=== PATIENT | female | born 1955 | race Caucasian/White ===

== ENCOUNTER → 2021-04-10 08:01 | Outpatient (BNVA) | payer MEDICARE, SELFPAY | PROVIDERS: PCP Nurse Practitioner Family; Visit Provider Nurse Practitioner Psychiatric/Mental Health | DX: F31.9 Bipolar disorder, unspecified (principal); F43.12 Post-traumatic stress disorder, chronic; Z03.89 Encounter for observation for other suspected diseases and conditions ruled out | CPT/HCPCS: 99215 ==

== ENCOUNTER → 2021-04-11 09:51 | Outpatient (BNVA) | payer MEDICARE, SELFPAY | PROVIDERS: PCP Nurse Practitioner Family; Visit Provider Nurse Practitioner Psychiatric/Mental Health | DX: Z03.89 Encounter for observation for other suspected diseases and conditions ruled out (principal) | CPT/HCPCS: 80053; 80061; 83036; 84439; 84443; 84481 ==

== ENCOUNTER → 2021-04-24 11:16 | Outpatient (BNVA) | payer MEDICARE, SELFPAY | PROVIDERS: PCP Nurse Practitioner Family; Visit Provider Nurse Practitioner Psychiatric/Mental Health | DX: F43.12 Post-traumatic stress disorder, chronic (principal); F32.9 Major depressive disorder, single episode, unspecified | CPT/HCPCS: 99213 ==

== ENCOUNTER → 2021-08-14 14:24 | Outpatient (BNVA) | payer MEDICARE, SELFPAY | PROVIDERS: PCP Nurse Practitioner Family; Visit Provider Nurse Practitioner Psychiatric/Mental Health | DX: F43.12 Post-traumatic stress disorder, chronic (principal); F32.9 Major depressive disorder, single episode, unspecified | CPT/HCPCS: 99213 ==

== ENCOUNTER → 2022-02-24 12:19 | Outpatient (BNVA) | payer MEDICARE, SELFPAY | PROVIDERS: PCP Nurse Practitioner Family; Visit Provider Nurse Practitioner Family | DX: R35.0 Frequency of micturition (principal); B37.3 Candidiasis of vulva and vagina | CPT/HCPCS: 81000 ==

== ENCOUNTER → 2023-02-15 09:22 | Outpatient (BNVA) | payer MEDICARE, SELFPAY | PROVIDERS: PCP Family Medicine | DX: R06.00 Dyspnea, unspecified (principal); R06.02 Shortness of breath; Z98.890 Other specified postprocedural states | CPT/HCPCS: 71046 ==

== ENCOUNTER 2023-04-19 09:42 | Outpatient (CLI) | payer MEDICARE, SELFPAY ==
[2023-04-19 10:32] LABS: Estmated Average Glucose 117; Hemoglobin A1C 5.7 % (4.0-6.0)
[2023-04-19 10:37] LABS: Alanine Aminotransferase 32 U/L (0-33); Albumin Level 4.1 g/dL (3.5-5.2); Alkaline Phosphatase 114 U/L (35-105); Aspartate Amino Transferase 27 U/L (0-32); Blood Urea Nitrogen 12 mg/dL (8-23); Calcium 8.8 mg/dL (8.5-10.5); Carbon Dioxide 24 mmol/L (22-29); Chloride 105 mmol/L (98-107); Chol HDL Ratio 8.04 mg/dL (0.0-4.40); Cholesterol 217 mg/dL (0-200); Globulin 2.3 g/dL (1.3-4.6); Glomerular Filtration Rate 62.3 mL/min (90-130); Glucose 96 mg/dL (65-115); HDL Cholesterol 27 mg/dL (60-100); LDL Cholesterol Calculated 128 mg/dL (50-129); LDL HDL Ratio 4.74 RATIO (0.00-3.22); Osmolality Calculated 290 mOsm/kg (285-295); Sodium 140 mmol/L (136-145); Total Bilirubin 0.6 mg/dL (0.15-1.2); Total Protein 6.4 g/dL (6.6-8.7); Triglycerides 310 mg/dL (0-150)
== END 2023-04-19 09:43 | disposition home or self-care (01) ==
PROVIDERS: PCP Family Medicine; Visit Provider Nurse Practitioner Psychiatric/Mental Health
DX: Z79.899 Other long term (current) drug therapy (principal)
CPT/HCPCS: 36415; 80053; 80061; 83036; 87070; 87205

== ENCOUNTER 2023-04-29 12:53 | Outpatient (CLI) | payer MEDICARE, SELFPAY ==
--- NOTE | 2023-04-29 13:15 | CT_ITS ---
WS: [id number] LDCT LUNG CANCER SCREENING HISTORY: screening TECHNIQUE: Axial imaging performed from the apices to 1 cm below the costophrenic angles. Coronal and sagittal reformats are submitted with axial MIP series. All CT scans at [facility] use at least one of these dose optimization techniques: automated exposure control; mA and/or kV adjustment per patient size (includes targeted exams where dose is matched to clinical indication); or iterativ e reconstruction. DLP: 64.50 mGy.cm DIvol: Mean CTDIvol: 1.30 (mGy) COMPARISON: None available. Diagnostic quality: Satisfactory Lungs: Well aerated lungs. There are numerous scattered micronodules throughout the lungs. Majority o f these are calcified from granulomatous disease. No mass or larger nodule than 3 mm. No endobronchia l lesions. No pneumonia. Heart: Normal size heart with no pericardial effusion.. Mild coronary artery calcified plaque. Other findings: Mild atherosclerosis aorta. No significant mediastinal or hilar adenopathy. CT/CT lung screening [id number] IMPRESSION: LUNG-RADS: 1-Negative FOLLOW UP: 12 Month: Continue annual screening with LDCT OTHER FINDINGS (S MODIFIER): None.
--- NOTE | 2023-04-29 13:24 | MM_ITS ---
WS: [id number] BILATERAL SCREENING DIGITAL TOMOSYNTHESIS MAMMOGRAM WITH CAD HISTORY: screening mammogram COMPARISON: None available. Bilateral CC and MLO views with tomosynthesis and synthetic mammography submitted. Computer aided det ection analyzed. Breast composition: There are scattered areas of fibroglandular density. No suspicious masses, microc alcifications or architectural distortion. Benign 8 mm intramammary lymph node RIGHT axillary tail. B enign calcifications LEFT breast. MM/[place] [id number] IMPRESSION: BI-RADS: 2-Benign FOLLOW UP: 1 Year Follow-up
== END 2023-04-29 12:54 | disposition home or self-care (01) ==
LOC: RAD 12:57 → MOBLMAM 13:23
PROVIDERS: PCP Family Medicine; Visit Provider Family Medicine
DX: Z12.31 Encounter for screening mammogram for malignant neoplasm of breast (principal); Z12.2 Encounter for screening for malignant neoplasm of respiratory organs; F17.219 Nicotine dependence, cigarettes, with unspecified nicotine-induced disorders
CPT/HCPCS: 71271; 77063; 77067

== ENCOUNTER → 2023-05-04 09:44 | Outpatient (BNVA) | payer MEDICARE, SELFPAY | PROVIDERS: PCP Family Medicine; Visit Provider Surgery | DX: Z86.010 Personal history of colon polyps (principal) | CPT/HCPCS: 99203 ==

== ENCOUNTER 2023-05-27 06:27 | Day surgery (SDC) | payer MEDICARE, SELFPAY ==
[2023-05-27 06:53] VITALS: BP 165/65; PULSE 62; RESP 18; TEMP 36.2; O2SAT 95
--- NOTE | 2023-05-27 07:00 | P.HPUD_ITS ---
Surgery/Procedure H&P Update DATE OF PROCEDURE: May 27, 2023 DATE H&P PERFORMED: 05/04/23 H&P UPDATE INFORMATION: I have reviewed H&P completed within last 30 days, I have examined patient prior to procedure, No changes to prior documentation and H&P is in [facility] EMR on date indicated PLANNED PROCEDURE: Operation Date: 05/27/23 07:50 Proposed Procedures p Colonoscopy 87492,Z86.010(Not Applicable) - Joaquín Rivers MD
[2023-05-27] MEDS: sodium chloride 0.9% 1,000 ML 30 ML IV (07:11)
--- NOTE | 2023-05-27 07:32 | ANES.PREANE2 ---
Pre-Anesthetic Assessment Height/Weight: Height 1.68 m Weight 77.564 kg Temp Pulse Resp BP Pulse Ox O2 Del Method 97.1 F L 62 18 165/65 95 Room Air 05/27/23 06:53 05/27/23 06:53 05/27/23 06:53 05/27/23 06:53 05/27/23 06:53 05/27/23 06:53 Operation Date: 05/27/23 07:50 Proposed Procedures p Colonoscopy [id number],Z86.010(Not Applicable) - Joaquín Rivers MD Familial anesthetic complications: none Was Beta Kavon taken within 24 hours: N/A Was Clonidine taken within 24 hours: N/A Last intake: Intake Last Liquid Date 05/26/23 Last Liquid Time 22:00 Last Solid Date 05/25/23 Last Solid Time 19:00 Social No alcohol and No tobacco Exam alert and oriented x 3 Airway Submandibular: within normal limits Cervical ROM: within normal limits Mallampati: Class II Dentition: false History/ROS No significant history except as noted Pulmonary Chronic Obstructive Pulmonary Disease emphysema None reported Hepatic None reported GI Gastroesophageal Reflux Disease Metabolic None reported Musc/skel None reported Neuropsych Bipolar Anesthetic Plan ASA status: 3 Anesthesia: Anesthesia Evaluation, General and MAC Medications/Allergies Home Medications Medication Instructions Recorded Confirmed Last Taken Type citalopram 20 mg tablet 20 mg PO .q am #30 tabs 04/27/23 05/25/23 05/26/23 Rx quetiapine 50 mg tablet (Seroquel) 50 mg PO .q hs #30 tabs 04/27/23 05/25/23 05/26/23 Rx celecoxib 100 mg capsule (Celebrex) 100 mg PO BID #60 caps 05/17/23 05/25/23 05/26/23 Rx conjugated estrogens 0.625 mg/gram 0.625 mg vaginal .COMPLEX #30 grams 05/17/23 05/25/23 05/26/23 Rx vaginal cream (Premarin) omeprazole 40 mg capsule,delayed 40 mg PO DAILY #90 caps 05/17/23 05/25/23 05/26/23 Rx release tizanidine 4 mg tablet 4 mg PO .at dinnertime PRN muscle 05/17/23 05/25/23 05/26/23 Rx spasticity #30 tabs Allergies Allergy/AdvReac Type Severity Reaction Status Date / Time morphine Allergy ALGY-Bliste Verified 05/17/23 12:58 r Current Medications Generic Name Dose Route Start Last Admin Trade Name Freq PRN Reason Stop Dose Admin Sodium Chloride 1,000 mls @ 30 mls/hr 05/27/23 06:45 05/27/23 07:11 Sodium Chloride 0.9% IV 30 mls/hr .Q24H CHAD Administration PFSH Anesthesia Medical History (Updated 05/17/23 @ 13:08 by Dianelys Jin DO) Major depressive disorder, recurrent, moderate Psychiatric care Surgical History (Updated 05/17/23 @ 13:05 by Dianelys Jin DO) History of esophagogastroduodenoscopy (EGD) more than 10 years ago History of hysterectomy Due to abnormal pap Hx of colonoscopy More than 10 years ago Social History Smoking and tobacco status: current every day smoker cigarettes Packs smoked per day: 0.5 Years cigarettes smoked: 58 Quit status (tobacco): not considering quitting Second hand smoke exposure: No Data Anesthesia Cardiac Studies: No Data to Display
[2023-05-27 08:29] VITALS: BP 110/68; PULSE 56; RESP 16; TEMP 36.3; O2SAT 94
[2023-05-27 08:39] VITALS: BP 138/78; PULSE 54; RESP 16; O2SAT 94
--- NOTE | 2023-05-27 16:09 | ANE.PACU2 ---
Inpatient post-anesthesia follow up: Airway intact: Yes Vital signs: Temperature 97.3 F Pulse Rate 54 Respiratory Rate 16 Blood Pressure 138/78 Pulse Oximetry 94 Oxygen Delivery Me thod Room Air Oxygen Flow Rate Fraction of Inspir ed Oxygen Hydration adequate: Yes Nausea and vomiting: No Pain level: 2 Mental status: Baseline
== END 2023-05-27 09:05 | disposition home or self-care (01) ==
PROVIDERS: PCP Family Medicine; Visit Provider Surgery
PROC: 0DJD8ZZ Inspection of Lower Intestinal Tract, Via Natural or Artificial Opening Endoscopic (ICD-10-PCS; CPT 45330; principal; 2023-05-27 07:50)
DX: Z86.010 Personal history of colon polyps (principal); J44.9 Chronic obstructive pulmonary disease, unspecified; K21.9 Gastro-esophageal reflux disease without esophagitis; F17.210 Nicotine dependence, cigarettes, uncomplicated
CPT/HCPCS: 45330; J2704; J7030

== ENCOUNTER → 2023-05-28 15:33 | Outpatient (BNVA) | payer MEDICARE, SELFPAY | PROVIDERS: PCP Family Medicine; Visit Provider Surgery | DX: Z09 Encounter for follow-up examination after completed treatment for conditions other than malignant neoplasm (principal) | CPT/HCPCS: 99212 ==

== ENCOUNTER → 2024-02-15 09:51 | Outpatient (BNVA) | payer MEDICARE, SELFPAY | PROVIDERS: PCP Family Medicine; Visit Provider Anesthesiology Pain Medicine | DX: M51.16 Intervertebral disc disorders with radiculopathy, lumbar region (principal); G89.29 Other chronic pain | CPT/HCPCS: 72110; 99204 ==

== ENCOUNTER → 2024-02-29 13:50 | Outpatient (BNVA) | payer MEDICARE, SELFPAY | PROVIDERS: PCP Family Medicine; Visit Provider Anesthesiology Pain Medicine | DX: M54.16 Radiculopathy, lumbar region (principal); M54.42 Lumbago with sciatica, left side; M54.41 Lumbago with sciatica, right side; G89.29 Other chronic pain | CPT/HCPCS: 64483; 64484; J1100; J3490 ==

== ENCOUNTER 2024-03-13 14:35 | Outpatient (CLI) | payer MEDICARE, SELFPAY ==
--- NOTE | 2024-03-13 15:15 | MR_ITS ---
WS: [id number] MRI LUMBAR SPINE NONCONTRAST HISTORY: M54.16 - Radiculopathy, lumbar region COMPARISON: 08/07/2016 TECHNIQUE: Sagittal and axial multisequence imaging is submitted. Central cervical stenosis from C4-C6 7 due to disc and osteophyte disease. Mild curvature lumbar spine. Disc spaces are narrowed and desiccated. Most significant desiccation at L4-5. Reactive marrow edema along the endplates of L4-5. Conus terminates normally at L1-2 disc level. T12-L1: Annular disc bulging with a shallow RIGHT paracentral disc protrusion. Mild bilateral foramin al stenosis. L1-L2: Diffuse annular disc bulging with osteophytic ridging. LEFT paracentral disc protrusion contac ting and deforming the LEFT lateral thecal sac. Mild bilateral subarticular recess encroachment, LEFT greater than RIGHT. Mild LEFT foraminal stenosis. L2-L3: Mild annular disc bulging. No stenosis. L3-L4: Mild annular disc bulging with facet and ligamentum flavum hypertrophy. Disc encroachment upon the subarticular recesses and mild subarticular recess stenosis. L4-L5: Diffuse annular disc bulging with osteophytic ridging, ligamentum flavum and facet disease. Mo derate central disc protrusion. Combination of findings resulting in moderate to severe central with bilateral subarticular recess and mild foraminal stenosis. There is significant contact on the bree sing L5 nerve roots. L5-S1: Mild disc bulging. Small LEFT foraminal osteophytes. Suspect there is a cyst associated with the upper pole RIGHT kidney. Atherosclerosis aorta. MR/MR lumbar spine wo con* [id number] IMPRESSION: 1. Progression of degenerative disc disease and facet disease since 2016. 2. Most significant disc progression is at L4-5. 3. L4-5: Moderate to severe central with bilateral subarticular recess and mil d foraminal stenosis. Significant contact on the traversing L5 nerve roots. The re is a moderate size central disc protrusion contributing to the encroachment. Disc protrusion and stenosis have progressed since 2016. 4. L3-4: Disc encroachment upon the subarticular recesses. Mild subarticular r ecess stenosis. 5. L1-2: Small LEFT paracentral disc protrusion. Contacts the LEFT lateral the adelia sac. Mild bilateral subarticular recess encroachment, LEFT greater than RIG HT and mild LEFT foraminal stenosis. 6. T12-L1: Mild foraminal stenosis.
== END 2024-03-13 14:36 | disposition home or self-care (01) ==
LOC: RAD 14:37
PROVIDERS: PCP Family Medicine; Visit Provider Anesthesiology Pain Medicine
DX: M54.16 Radiculopathy, lumbar region (principal); M48.061 Spinal stenosis, lumbar region without neurogenic claudication; M51.26 Other intervertebral disc displacement, lumbar region; M48.04 Spinal stenosis, thoracic region
CPT/HCPCS: 72148

== ENCOUNTER → 2024-03-14 10:22 | Outpatient (BNVA) | payer MEDICARE, SELFPAY | PROVIDERS: PCP Family Medicine; Visit Provider Anesthesiology Pain Medicine | DX: G89.29 Other chronic pain; M51.16 Intervertebral disc disorders with radiculopathy, lumbar region | CPT/HCPCS: 99214 ==

== ENCOUNTER 2025-02-22 08:40 | Outpatient (CLI) | payer OTHER, SELFPAY ==
--- NOTE | 2025-02-22 08:45 | CT_ITS ---
WS: [id number] LDCT LUNG CANCER SCREENING TECHNIQUE: Noncontrast CT of the chest with coronal and sagittal reformatted images. CLINICAL INFORMATION: NICOTINE DEPENDENCE,CIGARETTES COMPARISON: 2022 DLP: 69.51 mGy.cm DIvol: Mean CTDIvol: 1.50 (mGy) All CT scans at [facility] use at least one of these dose optimization techniques: automated exposure control; mA and/or kV adjustment per patient size (includes targeted exams where dose is matched to clinical indication); or iterative reconstruction. FINDINGS: Scattered tiny calcified granulomas. A few small perifissural nodules. Few tiny micronodules in the upper lobes. Aortic calcification. Coronary calcification. No mediastinal or hilar lymphadenopathy. No axillary lymphadenopathy. Tiny LEFT adrenal adenoma. Normal RIGHT adrenal gland. Normal GE junction. Thoracic kyphosis. CT/CT lung screening [id number] IMPRESSION: LUNG-RADS: 2-Benign Appearance or Behavior FOLLOW UP: 12 Month: Continue annual screening with LDCT
== END 2025-02-22 08:41 | disposition home or self-care (01) ==
LOC: RAD 08:43
PROVIDERS: PCP Physician Assistant; Visit Provider Physician Assistant
DX: Z12.2 Encounter for screening for malignant neoplasm of respiratory organs (principal); F17.210 Nicotine dependence, cigarettes, uncomplicated; R91.8 Other nonspecific abnormal finding of lung field; I70.0 Atherosclerosis of aorta; I25.10 Atherosclerotic heart disease of native coronary artery without angina pectoris; M40.294 Other kyphosis, thoracic region
CPT/HCPCS: 71271

== ENCOUNTER 2025-08-12 16:06 | Emergency (ER) | payer MEDICARE, SELFPAY ==
--- NOTE | 2025-08-12 16:10 | XRR_ITS ---
PROCEDURE INFORMATION: Exam: XR Chest Exam date and time: 08/12/2025 4:45 PM Age: 70 years old Clinical indication: Cough TECHNIQUE: Imaging protocol: Radiologic exam of the chest. Views: 1 view. COMPARISON: CT lung screening [id number] 02/22/2025 9:02 AM FINDINGS: Lungs: Bibasilar atelectasis. Emphysematous changes. Pleural spaces: Unremarkable. No pleural effusion. No pneumothorax. Heart/Mediastinum: Cardiomegaly. Bones/joints: Unremarkable. XR/XR chest 1V portable [id number] IMPRESSION: 1. Cardiomegaly. 2. Bibasilar atelectasis. 3. Emphysematous changes.
--- NOTE | 2025-08-12 16:11 | W.ED.UPPEXIN ---
HPI - Extremity Injury (Upper) General: Stated Complaint: cough / rt side pain Time Seen by Provider: 08/12/25 16:10 Related Data Home Medications ?Medication ?Instructions ?Recorded ?Confirmed Saccharomyces boulardii 250 mg 250 mg PO BID 12/16/23 05/16/24 capsule (Digest Probiotic (S.boulardii)) garlic 300 mg capsule 300 mg PO DAILY 12/16/23 05/16/24 Previous Rx's ?Medication ?Instructions ?Recorded citalopram 20 mg tablet 20 mg PO .q am #30 tabs 08/19/23 hydroxyzine pamoate 25 mg capsule 25 mg PO .q hs PRN anxiety #30 caps 08/19/23 quetiapine 100 mg tablet 100 mg PO .q hs #30 tabs 08/19/23 omeprazole 40 mg capsule,delayed 40 mg PO DAILY #90 caps 12/16/23 release tizanidine 4 mg tablet 4 mg PO TID PRN muscle spasticity 12/16/23 #270 tabs moxifloxacin 400 mg tablet 400 mg PO DAILY 7 days #7 tabs 05/16/24 Allergies Allergy/AdvReac Type Severity Reaction Status Date / Time amoxicillin (From Augmentin) Allergy Intermediate ADR-Nausea Verified 05/16/24 15:17 clavulanic acid (From Allergy Intermediate ADR-Nausea Verified 05/16/24 15:17 Augmentin) morphine Allergy ALGY-Bliste Verified 05/16/24 15:10 r z pack Allergy Intermediate ADR-Nausea Uncoded 05/16/24 15:18 celebrex Allergy Mild leg pain Uncoded 05/16/24 15:10 [facility] ED PFS: Medical History (Updated 08/21/24 @ 09:05 by Alejandra Elaine LPN) Major depressive disorder, recurrent, moderate Surgical History Hx of colonoscopy More than 10 years ago History of esophagogastroduodenoscopy (EGD) more than 10 years ago History of hysterectomy Due to abnormal pap Social History Smoking and tobacco/nicotine status: unknown if used tobacco/nicotine Quit status (tobacco/nicotine): not considering quitting Second hand smoke exposure: No Discharge Plan Discharge Condition: Stable Prescriptions: No Action garlic 300 mg capsule 300 mg PO DAILY Saccharomyces boulardii [Digest Probiotic (S.boulardii)] 250 mg capsule 250 mg PO BID tizanidine 4 mg tablet 4 mg PO TID PRN (Reason: muscle spasticity) Qty: 270 1RF omeprazole 40 mg capsule,delayed release(DR/EC) 40 mg PO DAILY Qty: 90 1RF moxifloxacin 400 mg tablet 400 mg PO DAILY 7 Days Qty: 7 0RF hydroxyzine pamoate 25 mg capsule 25 mg PO .q hs PRN (Reason: anxiety) Qty: 30 2RF Rx Instructions: Take one capsule by mouth at bedtime, if needed for anxiety quetiapine 100 mg tablet 100 mg PO .q hs Qty: 30 2RF Rx Instructions: Take one tablet daily at bedtime citalopram 20 mg tablet 20 mg PO .q am Qty: 30 2RF Rx Instructions: Take one tablet every morning with food Referrals: Qi Winters PA [Primary Care Provider, [facility]] Print Language: Arabic Coding Level of Care Code ED Clutch Rebuilder for Jaimee Brown
--- OUTSIDE RECORDS SUMMARY | 2025-08-12 16:12 | XMS_ITS | Continuity of Care Document ---
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 Plan of Treatment Reminders Order Date Submit Date Provider Last Modified By Organization Details Last Modified Time Details Appointments None recorded. Lab None recorded. Referral None recorded. Procedures None recorded. Surgeries None recorded. Imaging None recorded. Medication Orders prednisone 20 mg tablet 2024 [id number], [address], [place], [place], [phone], 12:43:52 doxycycline hyclate 100 mg capsule 2024 [facility] #43079, [address], [place], [place], [phone], 12:43:53 triamcinolo ne acetonide 0.1 % topical cream 2024 [facility] #[id number], [address], [place], [place], [phone], 12:43:57 Patient TargetsNo targets recorded. Patient InstructionsNo instructions recorded. Reason for Referral None Reported. Problems Name Problem SNOMED Code Status Onset Date Resolution Date Notes Provider Name and Address Organization Details Recorded Time Prolapsed lumbar interverteb ral disc 574902757 Active 2023 Alis carl [facility] 5 15:01:04 Chronic low back pain 187027602 Active 2023 Alis Jake carl, [facility] 5 15:01:34 Tobacco user 690679918 Active 2023 Erinn Snyder MD [address] [place] [address], [phone], [facility] 4 09:14:42 Atrophic vaginitis 45785826 Completed 202312/25/2024 Alis carl, [facility] 5 15:02:00 Plaque psoriasis 641883962 Active 2023 Alis carl [facility] 5 15:01:08 Genital warts 808118046 Active 2023 ANA MARÍA PATRICK [facility] 5 19:49:56 Acute exacerbatio n of chronic obstructive pulmonary disease 046163456 Active 2023 Alis carl, [facility] 5 15:02:06 Liver enzymes level above reference range 534048558 Completed 202402/26/2025 ANA MARÍA carl, [facility] 5 19:50:01 Hyperlipide neema 35105019 Active 2024 Alis carl [facility] 5 15:01:19 Essential hypertensio n 51295300 Active 2024 ANA MARÍA carl [facility] 5 19:50:07 Allergic rhinitis 48223531 Active 2024 ANA MARÍA ESTRELLATULIO siddhartha [facility], LRicharCBetsy 19:50:04 Primary insomnia 3444087 Active 2024 ANA MARÍA carl [facility], [place] 08:54:04 Notes:Some problems listed i n Document: #[id number] could not be added to this patient's chart. Please review this document and add these problems to the patient's chart manually as needed. Problem Notes None recorded. Procedures Surgical History Date Name Laterality Status Provider Name and Address Organization Details Recorded Time 06/19/20 25 Toenail avulsion completed NERY VILLAGOMEZ PA-C [address] [place] [address], [phone], [place] 06/20/2025 16:43:24 03/13/20 25 sampling of vagina for Papanicolaou smear completed ANA MARÍAHAYDEN CORREIATULIO [facility], SerinaLBetsyCBetsy 03/16/2025 09:16:45 02/23/20 25 screening for malignant neoplasm of lung completed [facility], LBetsyLBetsyCBetsy 02/22/2025 14:25:39 Appendectomy completed MARIA ISABEL RADHA [facility], LBetsyLBetsyCBetsy 06/07/2024 10:45:16 [facility] 06/07/2024 10:45:23 Imaging Results None recorded. Procedure Notes None recorded. Medical Equipment None Reported. Allergies Allergen ID Allergen Name Allergen Category Reaction Reaction Severity Criticality Documentation Date Start Date Code Code System Note Provider Name and Address Organization Details Recorded Time 79206 tizanidin e hydrochlo ride medicatio n Not available Not available Not available 05/01/2023 14160 0 RxNorm Comme nt: Recor ded 05/02 1:19P M by Teodoro ruiz, LUIS, Offic e Visit ; Promo herbert; Signi torres ce: *; Reaso n: Drug aller gy; ; MARIA ISABEL carl [facility] 4 12:42:17 60467 tramadol hydrochlo ride medicatio n Not available Not available Not available 05/01/2023 13599 RxNorm Comme nt: Recor ded 05/02 1:19P M by Teodoro ruiz, CMT, Offic e Visit ; Promo herbert; Signi fican ce: *; Reaso n: Drug aller gy; ; Not Available [facility] 3 02:27:11 99894 iodine medicatio n Not available Not available Not available 05/01/2023 5933 RxNorm Comme nt: Recor ded 05/02 1:19P M by Teodoro ruiz, CMT, Offic e Visit ; Promo herbert; Signi fican ce: *; Reaso n: Drug aller gy; ; Not Available [facility] 3 02:27:11 61779 gabapenti n medicatio n Not available Not available Not available 05/01/2023 49060 RxNorm Comme nt: Recor ded 05/02 1:19P M by Teodoro ruiz, CMT, Offic e Visit ; Promo herbert; Signi ficmatti ce: *; Reaso n: Drug aller gy; ; Not Available [facility] 3 02:27:11 34296 codeine sulfate medicatio n Not available Not available Not available 05/01/2023 11094 RxNorm Comme nt: Recor ded 05/02 1:19P M by Teodoro ruiz CMT, Offic e Visit ; Promo herbert; Signi fican ce: *; Reaso n: Drug aller gy; ; Not Available [facility] 3 02:27:11 08683 morphine sulfate medicatio n Not available Not available Not available 05/01/2023 01910 RxNorm Comme nt: Recor ded 05/02 1:19P M by Teodoro ruiz, CMT, Offic e Visit ; Promo herbert; Signi fican ce: *; ; Not Available [facility] 3 02:27:11 03473 amoxicill in medicatio n Not available Not available Not available 10/24/2024 723 RxNorm amoxi cilli n-cla v Alis Jake carl, [facility] 5 15:59:38 90500 azithromy jayson medicatio n Not available Not available Not available 10/24/2024 00486 RxNorm Z-pac Alis Jake carl, [facility] 5 16:01:57 Medications Name Sig Start Date Stop Date Status Note LastModified by Organization Details LastModified Time doxycycli ne hyclate 100 mg capsule TAKE 1 CAPSULE BY MOUTH TWICE DAILY FOR 5 DAYS active Not Available Not Available No t Available atorvasta tin 20 mg tablet TAKE 1 TABLET BY MOUTH EVERY DAY 02/07 completed Not Available Not Available Not Available clindamyc in HCl 300 mg capsule Take 1 capsule every 6 hours by oral route for 7 days. 07/03 completed Not Available Not Available Not Available trazodone 50 mg tablet TAKE 1 TABLET BY MOUTH EVERY DAY AT BEDTIME active Not Available Not Available No t Available tizanidin e 4 mg tablet TAKE 1 TABLET BY MOUTH EVERY 6 HOURS FOR 10 DAYS NEEDED 2024 active Not Available Not Available Not Avai lable lisinopri l 20 mg tablet TAKE 1 TABLET BY MOUTH EVERY DAY 02/07 completed Not Available Not Available Not Available prednison e 20 mg tablet TAKE 2 TABLETS BY MOUTH EVERY DAY FOR 3 DAYS active Not Available Not Available No t Available sertralin e 100 mg tablet daily 06/07 completed 75483; Recorded 05/15/20 20 11:10AM by Dayanara Pop CMT (Authori jarod through DUTCH Thompson), Refill Request; Refill Quantity : 45; QS; Not Available Not Available Not Available moxifloxa jayson 400 mg tablet TAKE 1 TABLET BY MOUTH DAILY FOR 7 DAYS 06/07 completed Not Available Not Available Not Available amlodipin e 5 mg tablet TAKE 1 TABLET BY MOUTH EVERY DAY active Not Available Not Available No t Available omeprazol e 40 mg capsule,d elayed release TAKE 1 CAPSULE BY MOUTH DAILY 06/07 completed Not Available Not Available Not Available quetiapin e 100 mg tablet TAKE ONE TABLET BY MOUTH AT BEDTIME 06/07 completed Not Available Not Available Not Available triamcino lone acetonide 0.1 % topical cream APPLY THIN LAYER TOPICALL Y TO THE AFFECTED AREA TWICE DAILY active Not Available Not Available No t Available betametha sone acetate and sodium phos 6 mg/mL suspensio n for injection Take 6 mg by injectio n route for 1 day. 08/07 completed Not Available Not Available Not Available citalopra m 20 mg tablet TAKE ONE TABLET BY MOUTH EVERY DAY IN THE MORNING WITH FOOD 06/07 completed Not Available Not Available Not Available imiquimod 5 % topical cream packet APPLY TO THE AFFECTED AREA(S) BY TOPICAL ROUTE 3 TIMES PER WEEK 03/13 completed Not Available Not Available Not Available estradiol 0.01% (0.1 mg/gram) vaginal cream INSERT 1 APPLICAT ORFUL VAGINALL Y 2 TIMES A WEEK 03/13 completed Not Available Not Available Not Available methylpre dnisolone 4 mg tablets in a dose pack FOLLOW PACKAGE DIRECTIO NS 12/11 completed Not Available Not Available Not Available betametha sone dipropion ate 0.05 % topical ointment APPLY A THIN LAYER TO THE AFFECTED AREA BY TOPICAL ROUTE ONCE DAILY active Not Available Not Available No t Available metoclopr amide 10 mg tablet TAKE PER COLON PREP INSTRUCT IONS 06/07 completed Not Available Not Available Not Available amoxicill in 875 mg-potass ium clavulana te 125 mg tablet TAKE 1 TABLET BY MOUTH TWICE DAILY FOR 10 DAYS 06/07 completed Not Available Not Available Not Available hydroxyzi ne pamoate 25 mg capsule TAKE ONE CAPSULE BY MOUTH AT BEDTIME NEEDED FOR ANXIETY. 2024 active Not Available Not Available Not Avai lable Allergy Relief D-24hr 10 mg-240 mg tablet,ex tended release TAKE 1 TABLET BY MOUTH EVERY DAY 02/07 completed Not Available Not Available Not Available hydromorp mireya three times daily, as needed 06/07 completed 0; Recorded 05/02/20 20 1:19PM by Dayanara Pop CMT, Office Visit; Not Available Not Available Not Available amitripty line at bedtime 06/07 completed Recorded 08/16/20 19 1:36PM by Dayanara Pop CMT, Office Visit; Refill Quantity : 30; Tablet; Not Available Not Available Not Available Crestor daily 06/07 completed Recorded 05/11/20 19 1:38PM by DUTCH Thompson, Office Visit; Refill Quantity : 30; Tablet; Not Available Not Available Not Available Gavilyte- C 240 gram-22.7 2 gram-6.72 gram-5.84 gram oral solution MIX AND DRINK DIRECTED 06/07 completed Not Available Not Available Not Available Vitals Date Recorded Body height Body mass index (BMI) Body weight Oxygen saturation Oxygen saturation in Arterial blood by Pulse oximetry Heart rate Respiratory rate Body temperature Systolic And Diastolic Provider Name and Address Organization Details Last Updated DateTime 167.64 cm 27.6 kg/m2 99879.3 g 98 % 98 % 76 /min 20 /min 98.7 [degF] 140/80 mm[Hg] ANA MARÍA PATRICK [facility] 11:47:06 Social History Question Answer Notes LastModified by Organizat ion Details LastModified Time Tobacco Smoking Status Current Every Day Smoker MARIA ISABEL carl [facility] 06/07/2024 10:46:40 Do You Have An Advance Directive? No Information not available 06/07/2024 Are You Blind Or Do You Have Difficulty Seeing? No Information not available 06/07/2024 What Is Your Level Of Caffeine Consumption? Moderate Information not available 06/07/2024 Are You Deaf Or Do You Have Serious Difficulty Hearing? No Information not available 06/07/2024 What Type Of Diet Are You Following? REGULAR Information not available 06/07/2024 What Is The Highest Grade Or Level Of School You Have Completed Or The Highest Degree You Have Received? [id number] Information not available 06/07/2024 Which Of Your Hands Is Dominant? Right Information not available 06/07/2024 What Was The Date Of Your Most Recent Tobacco Screening? 02/07/2025 Information not available 02/07/2025 What Is Your Current Pack Years? 30ormorepacky ears [email or web address] Information not available 02/07/2025 What Is Your Relationship Status? Single Information not available 06/07/2024 How Much Tobacco Do You Smoke? 0.5 PPD Information not available 02/07/2025 Has Tobacco Cessation Counseling Been Provided? Yes [email or web address] Information not available 02/07/2025 On What Date Was Tobacco Cessation Counseling Provided? 02/07/2025 [email or web address] Information not available 02/07/2025 How Many Years Have You Smoked Tobacco? 54 Information not available 06/07/2024 Have You Recently Traveled Abroad? No Information not available 06/07/2024 Do You Have Difficulty Walking Or Climbing Stairs? No Information not available 06/07/2024 Are You Currently In School? No Information not available 06/07/2024 Do You Have Any Dietary Restrictions? No Information not available 06/07/2024 Sex: Unknown Functional Status Question Answer Note LastModified by [employer] ion Details LastModified Time Do you use any illicit or recreational drugs? No Information not available 06/07/2024 Do you or have you ever used any other forms of tobacco or nicotine? No [email or web address] Information not available 02/07/2025 What is your level of alcohol consumption? None Information not available 06/07/2024 Are you currently employed? No Information not available 06/07/2024 Do you have transportation difficulties? No Information not available 06/07/2024 Are you able to walk independently without assistance or assistive devices? YESWOREST Information not available 06/07/2024 Do you have difficulty doing errands alone? No Information not available 06/07/2024 Are you able to care for yourself independently? Yes Information not available 06/07/2024 Do you have difficulty dressing, bathing, grooming, or toileting? No Information not available 06/07/2024 What is your exercise level? Occasional Information not available 06/07/2024 Do you or have you ever used any nicotine-free cigarettes, vape, or chewing tobacco? No Information not available 02/07/2025 Mental Status Question Answer Note LastModified by Organization D etails LastModified Time Do you have difficulty concentrating, remembering or making decisions? No Information no t available 06/07/2024 Family History Nothing Reported Notes:Brother: Hypertension Father: Bleeding disorder, Heart disease in male family member before age 55, Asthma Migraine Headache, Arthritis: Denied Mother: Cancer; Liver Cancer, Osteoporosis Medical History Condition Response Anxiety Disorder Y Muscle, Joint, or Bone Problems Y Gynecological HistoryNo gynecological history recorded. Obstetrics History GPAL:G 0 P 0 0 0 0 Immunizations Vaccine Type Date Status Note Provider Nam e and Address Organization Details Recorded Time Hep A, unspecified formulation 7 completed Not Available [facility] 08/07/2025 11:30:08 Hep A, unspecified formulation 8 completed Not Available [facility] 08/07/2025 11:30:08 Influenza, split virus, trivalent, PF 6 completed Not Available [facility] 08/07/2025 11:30:08 COVID-19, mRNA, LNP-S, PF, 100 mcg/0.5mL dose or 50 mcg/0.25mL dose 1 completed Not Available [facility] 08/07/2025 11:30:08 COVID-19, mRNA, LNP-S, PF, 100 mcg/0.5mL dose or 50 mcg/0.25mL dose 2 completed Not Available [facility] 08/07/2025 11:30:08 Influenza, adjuvanted, trivalent, PF 4 completed Erinn Snyder MD [address] [place] [address], [phone], [facility] 06/08/2024 12:35:43 zoster recombinant 4 completed Erinn Snyder MD [address] [place] [address], [phone], [facility] 06/08/2024 12:35:43 Pneumococcal conjugate PCV20, polysaccharide NTC710 conjugate, adjuvant, PF 4 completed Erinn Snyder MD [address] [place], [address], [facility], Jorge 06/08/2024 12:35:43 zoster recombinant 4 completed MARIA ISABEL carl [facility], [place] 08/09/2024 13:05:38 Past Encounters Encounter ID Performer Location Encounter Start Date Encounter Closed Date Diagnosis/Indication Diagnosis SNOMED-CT Code Diagnosis ICD10 Code Diagnosis IMO Codes Diagnosis Note [id number] NERY VILLAGOMEZ PA-C [facility] ([facility]) [address] [place] [address] 07/31/2025 14:19:36 07/31/2025 15:24:58 Acute exacerbation of chronic obstructive pulmonary disease 885441466 J44.1 049277 sample of Trelegy 100 mg one puff daily givenSampl e of Air Supra 2 puffs q 6 hrs as needed given to tryDemoed how to use and advised to rinse out mouth. [id number] NERY VILLAGOMEZ PA-C [facility] ([facility]) [address] [place] [address] 08/07/2025 11:29:46 08/07/2025 12:46:20 Acute exacerbation of chronic obstructive pulmonary disease 883906183 J44.1 704364 sample of Trelegy 100 mg one puff daily givenSampl e of Air Supra 2 puffs q 6 hrs as needed given to tryDemoed how to use and advised to rinse out mouth. Psoriasis 5103374 L40.9 Health Concerns Section Related Observation LastModified by Organization Detai ls LastModified Time None Recorded Concern Status LastModified by Organization Details LastModified Time None Recorded Payers Encounter Date Sequence Insurance Name Policy Number Policy Ojeda Covered Member ID Ojeda Member ID Guarantor Name 08/07/2025 1 [facility] - DUAL ELIGIBLE (MEDICARE REPLACEMENT/A DVANTAGE - HMO) Tamara Ferrer [id number] Tamara Ferrer Notes Date Note Type Note Provider Name and Address Organization Details Recorded Time 08/07/2025 text/html Upper Respirator y SymptomsReported by PatientUpper Respiratory SymptomsFor quality, patient reportsproductive cough,congested,hackin g cough,bark-like cough, andnasal discharge. For context, patient reportssmoker. For associated symptoms, patient reportschest pain,yellow sputum,shortness of breath, andfatigue. For location, patient reportshead,chest, andnasal. For severity, patient reportsmoderate. For duration, patient reportssymptoms lasting over 2 weeks. For onset/timing, patient reportsgradual. For alleviating factors, patient reportsantihistamines. i finished the doxy yesterday and prednisone a couple days before that, smoking 1/2 of what I was , still have a bad cough , can finally eat again,right side is sore from coughing NERY VILLAGOMEZ PA-C [address] [place], [address], [facility], Jorge 08/07/2025 12:44:44 OBGyn Episode No OBEpisode recorded.
--- OUTSIDE RECORDS SUMMARY | 2025-08-12 16:12 | XMS_ITS | Data Portability ---
Author Organization [facility], Jorge, [facility] Address [address] [place] [address] Care Team Providers Care Magician/Illusionist Name Role Phone ERINN SNYDER Primary Care Provider [phone] Assessment No assessment recorded. Plan of Treatment Reminders Order Date Submit Date Provider Last Modified By Organization Details Last Modified Time Details Appointments None recorded. Lab pap, LB 2024 025 [employer] [facility], [address] [place] [address] [address], [address], [place], [address], 19:10:30 unlisted lab - sureswab(R) advanced vaginitis plus, tma 2024 025 [employer] [facility], [address] [facility] [address], [address], [place], [address], 5 11:27:54 Referral pain management referral [address] [facility], [address] , [facility] [address], [address], 5 15:15:54 physical therapist referral 2024 [place] [address] [facility], [address], [place], [address], 5 14:59:59 Procedures nail avulsion (PROC) 2024 025 [email or web address] 2 [facility], [address], [address], [place], [address], 09:14:43 evacuation of subungual hematoma (PROC) 2024 API-[id number] [facility], [address], [address], [place], [address], 12:57:57 Surgeries None recorded. Imaging None recorded. Medication Orders prednisone 20 mg tablet 2024 [facility], [address], [place], [place], [id number], 12:43:52 doxycycline hyclate 100 mg capsule 2024 [facility], [address], [place], [place], [id number], 12:43:53 triamcinolo ne acetonide 0.1 % topical cream 2024 [facility]73803, [address], [place], [place], [id number], 12:43:57 doxycycline hyclate 100 mg capsule 2024 [facility], [address], [place], [place], [id number], 11:50:27 prednisone 20 mg tablet 2024 [facility], [address], [place], [place], [id number], 11:45:40 betamethaso ne acetate and sodium phos 6 mg/mL suspension for injection 2024 [email or web address] 1 Not available 11:45:07 triamcinolo ne acetonide 0.1 % topical cream 2024 025 [facility] #06031, [address], [place], [place], [id number], 17:40:37 clindamycin HCl 300 mg capsule 2024 025 [facility] #79413, [address], [place], [place], [id number], 5 05:01:45 tizanidine 4 mg tablet 2024 [facility] #08142, [address], [place], [place], [id number], 12:16:39 betamethaso ne dipropionat e 0.05 % topical ointment 2024 [facility] #64014, [address], [place], [place], [id number], 13:36:33 Patient TargetsNo targets recorded. Patient InstructionsNo instructions recorded. Reason for Referral Pain Management Referral for Lumbosacral radiculopathy Referring Physician: Qi Winters [facility], Encounter Date: 05/15/2025 Physical Therapist Referral for Lumbosacral radiculopathy Referring Physician: Qi Winters [facility], Encounter Date: 05/15/2025 Results Created Date Observation Date Name Description Value Unit Range Abnormal Flag Note LastModifiedBy Organization Detail LastModifiedTime 03/13/2003/14/2025 SURES WAB(R ) ADVAN IVA VAGIN ITIS PLUS, TMA sureswab(R) adv bacterial vaginosis (bv), tma NEGATI VE negati ve normal Not Available [facility] [address], [place], [address], 03/14/2025 11:27:54 03/13/20 25 03/14/2025 SURES WAB(R ) ADVAN IVA VAGIN ITIS PLUS, TMA manuel species NOT DETECT ED not detect ed normal Not Available [facility] [address], [address], 03/14/2025 11:27:54 03/13/20 25 03/14/2025 SURES WAB(R ) ADVAN IVA VAGIN ITIS PLUS, TMA manuel glabrata NOT DETECT ED not detect ed normal Beata da speci es C. albic ans, C. tropi calis , C. parap leoncio is, and/o r C. dubli niens is can be detec herbert, but not diffe renti ated, in the Beata da spp. resul t. Not Available [facility] [address], [address], 03/14/2025 11:27:54 03/13/20 25 03/14/2025 SURES WAB(R ) ADVAN IVA VAGIN ITIS PLUS, TMA trichomonas vaginalis (TV), tma NOT DETECT ED not detect ed normal Not Available [facility] [address], [address], 03/14/2025 11:27:54 03/13/20 25 03/14/2025 SURES WAB(R ) ADVAN IVA VAGIN ITIS PLUS, TMA chlamydia trachomatis RNA, tma, urogenital NOT DETECT ED not detect ed normal Not Available [facility] - [address], [address], 03/14/2025 11:27:54 03/13/20 25 03/14/2025 SURES WAB(R ) ADVAN IVA VAGIN ITIS PLUS, TMA neisseria gonorrhoeae RNA, tma, urogenital NOT DETECT ED not detect ed normal For addit ional maco avila refer to https ://ed ucati on.qu lisa [employer]. [employer]/f aq/FA Q154 (This link is being provi ded for infor matio n/ educa aj l purpo ses only. ) Not Available [place] [address] [place], [address], 03/14/2025 11:27:54 03/13/20 25 03/15/2025 IMAGE -GUID ED PAP W/AGE BASED SCR ROSALBA COLS comment This order for age-b ased cervi adelia cance r and STI scree pepito follo ws ACOG guide lines (PB 168, 140, FAQ07 1). See indiv idual assay s for perfo rming site locat ion. Not Available [address], [address], 03/15/2025 19:10:29 03/13/20 25 03/15/2025 IMAGE -GUID ED PAP W/AGE BASED SCR ROSALBA COLS clinical information: normal Rosette l exam Not Available [address], [address], 03/15/2025 19:10:29 03/13/20 25 03/15/2025 IMAGE -GUID ED PAP W/AGE BASED SCR ROSALBA COLS LMP: normal NONE GIVEN Not Available [address], [address], 03/15/2025 19:10:29 03/13/20 25 03/15/2025 IMAGE -GUID ED PAP W/AGE BASED SCR ROSALBA COLS prev. Pap: normal NONE GIVEN Not Available [address], [address], 03/15/2025 19:10:29 03/13/20 25 03/15/2025 IMAGE -GUID ED PAP W/AGE BASED SCR ROSALBA COLS prev. BX: normal NONE GIVEN Not Available [address], [address], 03/15/2025 19:10:29 03/13/20 25 03/15/2025 IMAGE -GUID ED PAP W/AGE BASED SCR ROSALBA COLS source: normal Cervi x, Endoc ervix Not Available [place] [address] [place], [address], 03/15/2025 19:10:29 03/13/2003/15/2025 IMAGE -GUID ED PAP W/AGE BASED SCR ROSALBA COLS statement of adequacy: normal Satis facto ry for evalu ation . Endoc ervic al/tr ansfo rmati on zone compo nent absen t. Not Available [place] [address] [place], [address], 03/15/2025 19:10:29 03/13/20 25 03/15/2025 IMAGE -GUID ED PAP W/AGE BASED SCR ROSALBA COLS interpretati on/result: normal Cytol ogy Resul ts: Negat morteza for intra epith elial lesio n or malig luciano . Not Available [place] [address] [place], [address], 03/15/2025 19:10:29 03/13/20 25 03/15/2025 IMAGE -GUID ED PAP W/AGE BASED SCR ROSALBA COLS comment: normal This Pap test has been evalu ated with compu ter irene herbert techn ology . Not Available [place] [address] [place], [address], 03/15/2025 19:10:29 03/13/2003/15/2025 IMAGE -GUID ED PAP W/AGE BASED SCR ROSALBA COLS cytotechnolo gist: normal MEF, CT( CP) CT scree pepito locat ion: [facility] [place] [address] [place] [address] Not Available [address], [address], 03/15/2025 19:10:29 03/13/20 25 03/15/2025 IMAGE -GUID ED PAP W/AGE BASED SCR ROSALBA COLS comment EXPLA NATOR Y NOTE: The Pap is a scree pepito test for cervi adelia cance r. It is not a diagn ostic test and is subje ct to false negat morteza and false posit morteza resul ts. It is most relia ble when a satis facto ry sampl e, regul keenan obtai atilio, is submi tted with relev ant clini adelia findi ngs and histo ry, and when the Pap resul t is evalu ated along with histo mikael and curre nt clini adelia infor matio n. Not Available [facility] [address] [place], [address], 03/15/2025 19:10:29 02/23/20 25 02/22/2025 LDCT, chest , for lung cance r scree pepito No observ ation record ed. [email or web address] [facility] [address] [place], [address], 02/22/2025 14:26:37 Result Notes None recorded. Problems Name Problem SNOMED Code Status Onset Date Resolution Date Notes Provider Name and Address Organization Details Recorded Time Prolapsed lumbar interverteb ral disc 580754333 Active 2023 Alis carl [facility] 5 15:01:04 Chronic low back pain 954377868 Active 2023 Alis carl [facility] 5 15:01:34 Tobacco user 302431811 Active 2023 Erinn Snyder MD [address] [place] [address], [address] [place] [address], L.L.CBetsy 4 09:14:42 Atrophic vaginitis 32570474 Completed 202312/25/2024 Alis carl [facility]CB[facility]y 5 15:02:00 Plaque psoriasis 614933772 Active 2023 Alis calr [facility] 5 15:01:08 Genital warts 708896401 Active 2023 ANA MARÍA PATRICK [facility] 5 19:49:56 Acute exacerbatio n of chronic obstructive pulmonary disease 979159259 Active 2023 Alis Jake [facility] 5 15:02:06 Liver enzymes level above reference range 021124886 Completed 202402/26/2025 ANA MARÍA PATRICK [facility], [facility] 19:50:01 Hyperlipide neema 01936022 Active 2024 Alis Joseph [facility] 15:01:19 Essential hypertensio n 03108375 Active 2024 ANA MARÍA PATRICK [facility] 19:50:07 Allergic rhinitis 18911394 Active 2024 ANA MARÍA PATRICK [facility], [facility] 19:50:04 Primary insomnia 6701442 Active 2024 ANA MARÍA PATRICK [facility] 08:54:04 Notes:Some problems listed i n Document: #[id number] could not be added to this patient's chart. Please review this document and add these problems to the patient's chart manually as needed. Problem Notes None recorded. Procedures Surgical History Date Name Laterality Status Provider Name and Address Organization Details Recorded Time 06/19/20 25 Toenail avulsion completed QI WINTERS PA-C [address] [place] [address], [address], [facility] 06/20/2025 16:43:24 03/13/20 25 sampling of vagina for Papanicolaou smear [facility] 03/16/2025 09:16:45 02/23/20 25 screening for malignant neoplasm of lung completed [facility] 02/22/2025 14:25:39 Appendectomy completed [facility] 06/07/2024 10:45:16 Hysterectomy completed [facility] 06/07/2024 10:45:23 Imaging Results None recorded. Procedure Notes None recorded. Medical Equipment None Reported. Allergies Allergen ID Allergen Name Allergen Category Reaction Reaction Severity Criticality Documentation Date Start Date Code Code System Note Provider Name and Address Organization Details Recorded Time 89324 tizanidin e hydrochlo ride medicatio n Not available Not available Not available 05/01/2023 64342 0 RxNorm Comme nt: Recor ded 05/02 1:19P M by Teodoro ruiz CMT, Offic e Visit ; Promo herbert; Signi fican ce: *; Reaso n: Drug aller gy; ; [facility]EL [facility] LB[facility]etsy 4 12:42:17 [address]604 tramadol hydrochlo ride medicatio n Not available Not available Not available 05/01/2023 60342 RxNorm Comme nt: Recor ded 05/02 1:19P M by Teodoro ruiz CMT, Offic e Visit ; Promo herbetr; Signi ficmatti ce: *; Reaso n: Drug aller gy; ; Not Available [facility] 3 02:27:11 39230 iodine medicatio n Not available Not available Not available 05/01/2023 5933 RxNorm Comme nt: Recor ded 05/02 1:19P M by Teodoro ruiz CMT, Offic e Visit ; Promo herbert; Signi fican ce: *; Reaso n: Drug aller gy; ; Not Available [facility] 3 02:27:11 03804 gabapenti n medicatio n Not available Not available Not available 05/01/2023 05907 RxNorm Comme nt: Recor ded 05/02 1:19P M by Teodoro ruiz, LUIS, Offic e Visit ; Promo herbert; Eliot macdonald ce: *; Reaso n: Drug aller gy; ; Not Available [facility] 3 02:27:11 80724 codeine sulfate medicatio n Not available Not available Not available 05/01/2023 57620 RxNorm Comme nt: Recor ded 05/02 1:19P M by Teodoro ruiz, LUIS, Offic e Visit ; Promo herbert; Signi torres ce: *; Reaso n: Drug aller gy; ; Not Available [facility] 3 02:27:11 28785 morphine sulfate medicatio n Not available Not available Not available 05/01/2023 50430 RxNorm Comme nt: Recor ded 05/02 1:19P M by Teodoro ruiz CMT, Offic e Visit ; Promo herbert; Eliot macdonald ce: *; ; Not Available [facility] 3 02:27:11 34886 amoxicill in medicatio n Not available Not available Not available 10/24/2024 723 RxNorm amoxi cilli n-cla v [facility] 5 15:59:38 87524 azithromy jayson medicatio n Not available Not available Not available 10/24/2024 16492 RxNorm Z-pac [facility] 5 16:01:57 Medications Name Sig Start [...] e 100 mg tablet daily 06/07 completed 23193; Recorded 05/15/20 11:10AM by Dayanara Pop CMT (Authori jarod [...] Organization Details Last Updated DateTime 167.64 cm 27.9 kg/m2 28756.4 8 g 98 % 98 % 78 /min 18 /min 97.6 [degF] 120/88 mm[Hg] [facility] 5 12:31:29 Date Recorded Body height Body mass index (BMI) Body weight Oxygen saturation Oxygen saturation in Arterial blood by Pulse oximetry Heart rate Respiratory rate Body temperature Systolic And Diastolic Provider Name and Address Organization Details Last Updated DateTime 5 167.64 cm 27.9 kg/m2 64548.4 8 g 97 % 97 % 76 /min 18 /min 97 [degF] 140/80 mm[Hg] [facility] 5 11:43:23 Date Recorded Body height Body mass index (BMI) Body weight Oxygen saturation Oxygen saturation in Arterial blood by Pulse oximetry Heart rate Respiratory rate Body temperature Systolic And Diastolic Provider Name and Address Organization Details Last Updated DateTime 5 167.64 cm 27.6 kg/m2 85342.3 g 97 % 97 % 78 /min 18 /min 98 [degF] 146/80 mm[Hg] [facility] 5 09:11:02 Date Recorded Body height Body mass index (BMI) Body weight Oxygen saturation Oxygen saturation in Arterial blood by Pulse oximetry Heart rate Respiratory rate Body temperature Systolic And Diastolic Provider Name and Address Organization Details Last Updated DateTime 5 167.64 cm 27.6 kg/m2 67186.3 g 97 % 97 % 72 /min 18 /min 97.9 [degF] 138/80 mm[Hg] [facility] 5 14:31:18 Date Recorded Body height Body mass index (BMI) Body weight Oxygen saturation Oxygen saturation in Arterial blood by Pulse oximetry Heart rate Respiratory rate Body temperature Systolic And Diastolic Provider Name and Address Organization Details Last Updated DateTime 5 167.64 cm 27.6 kg/m2 22093.3 g 98 % 98 % 76 /min 20 /min 98.7 [degF] 140/80 mm[Hg] [facility] 11:47:06 Social History Question Answer Notes LastModified by Organizat ion Details LastModified Time Tobacco Smoking Status Current Every Day Smoker MARIA ISABEL carl [facility] Jorge 06/07/2024 10:46:40 Do You Have An Advance [...] Or The Highest Degree You Have Received? [id number] Information not available 06/07/2024 Which Of Your Hands Is Dominant? Right Information not available 06/07/2024 What Was The Date Of Your Most Recent Tobacco Screening? 02/07/2025 Information not available 02/07/2025 What Is Your Current Pack Years? [email or web address] Information not available 02/07/2025 What Is Your Relationship Status? Single Information not available 06/07/2024 How Much Tobacco Do You Smoke? 0.5 PPD [email or web address] Information not available 02/07/2025 Has Tobacco Cessation Counseling Been Provided? Yes [email or web address] Information not available 02/07/2025 On What Date Was Tobacco Cessation Counseling Provided? 02/07/2025 [email or web address] Information not available 02/07/2025 How Many Years [...] Functional Status Question Answer Note LastModified by Organizat ion Details LastModified Time Do you use any illicit or recreational drugs? No Information not available 06/07/2024 Do you or have you ever used any other forms of tobacco or nicotine? No [email or web address] Information not available 02/07/2025 What is your [...] nicotine-free cigarettes, vape, or chewing tobacco? No [email or web address] Information not available 02/07/2025 Mental Status Question [...] A, unspecified formulation 7 completed Not Available [facility] 08/07/2025 11:30:08 Hep A, unspecified formulation 8 completed Not Available [facility] 08/07/2025 11:30:08 Influenza, split virus, trivalent, PF 6 completed Not Available [facility] 08/07/2025 11:30:08 COVID-19, mRNA, LNP-S, PF, 100 mcg/0.5mL dose or 50 mcg/0.25mL dose 1 completed Not Available [facility] 08/07/2025 11:30:08 COVID-19, mRNA, LNP-S, PF, 100 mcg/0.5mL dose or 50 mcg/0.25mL dose 2 completed Not Available [facility] 08/07/2025 11:30:08 Influenza, adjuvanted, trivalent, PF 4 completed Erinn Snyder MD [address] [place] [address], [address], [facility] 06/08/2024 12:35:43 zoster recombinant 4 completed Erinn Snyder MD [address] [place] [address], [address], [facility] 06/08/2024 12:35:43 Pneumococcal conjugate PCV20, polysaccharide [id number] conjugate, adjuvant, PF 4 completed Erinn Snyder MD [address] [place] [address], [address], [facility] 06/08/2024 12:35:43 zoster recombinant 4 completed [facility] 08/09/2024 13:05:38 Past Encounters Encounter ID Performer Location Encounter Start Date Encounter Closed Date Diagnosis/Indication Diagnosis SNOMED-CT Code Diagnosis ICD10 Code Diagnosis IMO Codes Diagnosis Note [id number] Erinn Snyder MD [facility] ([facility]) [address] [place] [address] 06/07/2024 10:36:40 06/07/2024 11:35:33 Active or passive immunization 523380904 Z23 Provide vaccines for the patient today. Prolapsed lumbar intervertebral disc 806149149 M51.26 Continue with current pain management . Recommend daily stretching and exercises. Chronic low back pain 27 8122526 M54.50 Screening for malignant neoplasm of respiratory tract 960689493 Z12.2 Patient is up-to-date on most of her screening, but she has never had a low-dose CT and she does meet criteria for this. The patient has greater than 25-pack-ye ar history and she is actively smoking. [id number] Erinn Snyder MD [facility] ([facility]) [address] [place] [id number] 08/09/2024 12:33:28 08/09/2024 13:06:15 Atrophic vaginitis 21818401 N95.2 sx are likely related to atrophic vaginitis 2/2 menopause. Start estradiol cream and f/u if sx do not improve Plaque psoriasis 0151400 09 L40.0 We will provide steroid cream to use as needed for psoriasis Genital warts 832865421 A63.0 Patient reports genital warts. Start treatment with imiquimod [id number] Erinn Snyder MD [facility] ([facility]) [address] [place] [id number] 09/28/2024 13:44:33 10/01/2024 22:16:49 Acute exacerbation of chronic obstructive pulmonary disease 090195030 J44.1 Patient presented with symptoms of COPD exacerbati on. Advised to drink plenty of fluids, run a cool-mist humidifier in room at night, gargle salt water for sore throat, and get plenty of rest. Patient should avoid over-exert ion and reduce exposure to irritants such as smoke, cold, dry air, and dust. Treatment currently involves symptomati c relief. Patient may take acetaminop hen or ibuprofen as directed to reduce fever and body aches. Antihistam ine and decongesta nt usage was discussed and recommenda tions made. Albuterol inhaler, prednisone , and doxcycline sent to pharmacy. Take as prescribed . Patient understood these instructio ns and will follow up in the office in 7-10 days if symptoms not improving. Encouraged patient to follow up with PCP in 2 weeks for COPD jessica bryan [id number] SERVANDO CARRERA APRN [facility] ([facility]) [address] [place] [id number] 10/06/2024 12:20:16 10/06/2024 13:53:38 Cough 02931655 R05.9 Acute bronchitis 1529210 2 J20.9 [id number] Erinn Snyder MD [facility] ([facility]) [address] [place] [id number] 10/24/2024 15:35:01 10/24/2024 17:37:01 Plaque psoriasis 978257149 L40.0 Hyperlipid emia screening 959558688 Z13.220 Screening mammography 24 761561 Z12.31 Dysfunctio n of bilateral eustachian tubes 2275897354 602395 H69.93 [id number] DUTCH GIANG [facility] ([facility]) [address] [place] [id number] 12/11/2024 11:55:06 12/11/2024 12:48:39 Acute bacterial bronchitis 774003217 J20.9 Discussed use of otc medication s for symptom management .Push oral fluids and rest.If you develop fever, sob, or start feeling worse then return for re-evaluat ion. [id number] Erinn Snyder MD [facility] ([facility]) [address] [place] [id number] 12/27/2024 13:08:26 12/27/2024 15:29:49 Essential hypertension 08942966 I10 Blood pressure is elevated so we will start lisinopril . It is difficult to determine if this is actually causing any of her symptoms but the patient was encouraged to start the medication and to monitor blood pressure at home. Allergic rhinitis 854560 04 J30.9 The patient does have signs and symptoms of allergies and eustachian tube dysfunctio n. This is likely contributi ng to the patient's dizziness. Patient would like Stephany Melgar [id number] QI WINTERS PA-C [facility] ([facility]) [address] [place] [id number] 02/07/2025 15:04:00 02/07/2025 16:38:49 Essential hypertension 30287402 I10 24006 Nicotine dependence 5629 4008 F17.200 05621829 Generalize d anxiety disorder 54504892 F41.1 529815 form filled out for her to have a pet in apt. [id number] QI WINTERS PA-C [facility] ([facility]) [address] [place] [id number] 03/13/2025 11:31:52 03/14/2025 09:52:33 Lichen sclerosus of vulva 975794611 N90.4 6284953330 pulse tx. 10 days on and 10 days off. limit irritating chemicals/ soaps. wear breathable undercloth ing. Gynecologi c examination 01920046 Z01.985 9208747 Pruritus of vagina 09493 003 N89.8 762178 [id number] QI WINTERS PA-C [facility] ([facility]) [address] [place] [id number] 05/15/2025 11:34:30 05/15/2025 13:03:45 Lumbosacral radiculopathy 2348155 M54.17 [id number] MRI 6.24 at [facility] with L4/5 mod severe stenosis. progressed since 2016Pt is wanting injections and not meds. Subungual hematoma, hand 821041237 S60.10XA 5028284 right 3rd fingernail nail cleaned and hematoma evacuated but making hole in blister right under the nail. 3 cc removed and pt felt immediate relief. [id number] QI WINTERS PA-C [facility] ([facility]) [address] [place] [id number] 06/19/2025 08:56:15 06/22/2025 10:03:39 Impetigo 21293740 L01.00 00070 Psoriasis 2570402 L40.9 85856 Avulsion i njury of fingernail 051770368 S61.309D 8640654 [id number] QI WINTERS PA-C [facility] ([facility]) [address] [place] [id number] 07/31/2025 14:19:36 07/31/2025 15:24:58 Acute exacerbation of chronic obstructive pulmonary disease [id number] J44.1 [id number] sample of Trelegy 100 mg one puff daily givenSampl e of Air Supra 2 puffs q 6 hrs as needed given to tryDemoed how to use and advised to rinse out mouth. [id number] QI WINTERS PA-C [facility] ([facility]) [address] [place] [address] 08/07/2025 11:29:46 08/07/2025 12:46:20 Acute exacerbation of chronic obstructive pulmonary disease [id number] J44.1 [id number] sample of Trelegy 100 mg one puff daily givenSampl e of Air Supra 2 puffs q 6 hrs as needed given to tryDemoed how to use and advised to rinse out mouth. Psoriasis [id number] L40.9 Health Concerns Section Related Observation LastModified by Organization Detai ls LastModified Time None Recorded Concern Status LastModified by Organization Details LastModified Time None Recorded Advance Directives Directive N: Payers Insurance Date Sequence Insurance Name Policy Number Policy Ojeda Covered Member ID Ojeda Member ID Guarantor Name 08/06/2025 1 [facility] - DUAL ELIGIBLE (MEDICARE REPLACEMENT/A DVANTAGE - HMO) Tamara Ferrer [id number] Tamara Ferrer Notes Date Note Type Note Provider Name and Address Organization Details Recorded Time 5 text/html InsomniaReported by PatientHPIFor severity, patient reportsworseningbut reportsmoderate. For quality, patient reportsdifficulty initiating sleep,difficulty maintaining sleep, andwaking up too early. For duration, patient reportschronic. For onset/timing, patient reportsgradual onset. Annual GYNReported by PatientHistoryFor history, patient reportsgynecologic procedures:.Genitourinary symptomsFor vulva, patient reportspainful genital lesion. For vagina, patient reportsitchingbut reportsnormal vaginal discharge.Breast symptomsFor breast, patient reportsno breast pain,no breast lump, andno nipple discharge.ContraceptionFor current contraception, patient reportssatisfied with current contraceptionandnot sexually active.Endocrine symptomsFor menopausal symptoms, patient reportshot flashesandinsomnia due to night sweats. I had a total hyst in 2014 I think as far as I know they took everything. I have some vaginal itching and take azo. some sores not sure what they are but hurt when they get irritated. I used to have a sleeping pill but have been out x 1 week and need something to help me.I do not see Dr Kim anymore. QI WINTERS PA-C [address] [place], [address], [facility], LPhoebe. 03/15/2025 10:12:35 5 text/html Back PainReported by PatientHPIFor location, patient reportsradiation to buttocks bilateralandradiation to leg bilateralbut reportslumbar midline. For severity, patient reportsworsening,pain level 3/10,interferes with sleep, andinterferes with work. For quality, patient reportssharp,tingling,dull ,stiffness,throbbing,tende r,shooting,cramping,pressu re,squeezing,tightness,bur pepito, andstabbing. I ineed a refrral to pain treatment that can give injections in back I dont care for OZHChronic low back pain on and off since age 50.Work injury started it 20 yrs with lifting heavy weightHad MRI and xray last one was this year OZH.recent flare of acute LBP after helping her brother fix her car.No hx of surgeries. Has had success with injections over the years. QI WINTERS PA-C [address] [place], [address], [facility], LPhoebe. 05/15/2025 12:28:46 5 text/html Musculoskeletal PainReported by PatientHPIFor quality, patient reportssharp,tingling, anddull. For severity, patient reportsworsening,interfere s with sleep, andinterferes with work/school. For associated symptoms, patient reportsweak limbs. For location, patient reports__ handandright second finger. For duration, patient reportspresent for 1-6 months. For timing, patient reportsconstant,pain at night, andsudden. For context, patient reportstrauma. For aggravating factors, patient reportsmovement/positionin g. For adls affected, patient reportsdressingandeating. Pt with trauma to the left middle nail a month ago. now nail is 50% avulsed from the nail plate and she would like it all removed.also her she is having a psoriasis flare with new lesions and some are purulent fluid filled. QI WINTERS PA-C [address] [place], [address], [facility] 06/20/2025 16:44:25 5 text/html Upper Respiratory SymptomsReported by PatientUpper Respiratory SymptomsFor quality, patient reportsproductive cough,congested, andnasal discharge (bilateral). For context, patient reportssmoker,allergies, andcopdbut reportsno sick contactsandno foreign travel. For associated symptoms, patient reportsshortness of breath,wheezing,difficulty breathing at night,fatigue, andmorning cough. For location, patient reportschest,nasal, andface. For severity, patient reportsmoderate. For duration, patient reportssymptoms lasting less than 2 weeks. For onset/timing, patient reportsgradual. For alleviating factors, patient reportsanalgesics. x7d. QI WINTERS PA-C [address] [place], [address], [facility] 07/31/2025 15:22:00 5 text/html Upper Respiratory SymptomsReported by PatientUpper Respiratory SymptomsFor quality, patient reportsproductive cough,congested,hacking cough,bark-like cough, andnasal discharge. For context, patient [...] eat again,right side is sore from coughing QI WINTERS PA-C [address] [place], [address], [facility] 08/07/2025 12:44:44 OBGyn Episode No OBEpisode recorded.
--- OUTSIDE RECORDS SUMMARY | 2025-08-12 16:12 | XMS_ITS | Clinical Summary ---
Author Organization [facility] Address [address] Rojasn: Epic Prelude ADT [place] [address] Care Team Providers Care Occ Therapist Name Role Phone Unavailable Primary Care Provider Unavailabl e Allergies Active Allergy Reactions Criticality Noted Date Comments Codeine Nausea and Vomiting Low 05/14/2016 Iodine Rash Low 05/14/2016 Morphine Rash Low 05/14/2016 Medications sertraline HCl (ZOLOFT ORAL) Take 150 mg by mouth. 11/08/2019 Active HYDROmorphone (DILAUDID) 2 mg tablet Take 2 mg by mouth every 3 hours as needed for Pain. 11/08/2019 Active rosuvastatin (CRESTOR) 10 mg tablet Take 10 mg by mouth daily at bedtime. 11/08/2019 Active amitriptyline HCl (AMITRIPTYLINE ORAL) Take by mouth. 11/08/2019 Active diazePAM (VALIUM) 5 mg tablet Take 1 Tablet (5 mg) by mouth every 6 hours as needed for Spasm or Discomfort. 12 Tablet None 05/17/2016 Active HYDROcodone-acet aminophen (NORCO) 5-325 mg tablet Take 1 Tablet by mouth every 4 hours as needed for Pain, Moderate. Max Daily Amount: 6 Tablet 14 Tablet None 05/17/2016 Active aspirin (EVELIA) 325 mg tablet Take 325 mg by mouth daily. 05/14/2016 Active Social History Tobacco Use Types Packs/Day Years Used Date Smoking Tobacco: Every Day Cigarettes Smokeless Tobacco: Never Alcohol Use Standard Drinks/Week Comments No 0 (1 standard drink = 0.6 oz pur e alcohol) Comments Unknown Sex and Gender Information Value Date Recorded Sex Assigned at Not on file Legal Sex Female 1:[address] [place] Gender Identity Not on file Sexual Orientation Not on file Last Filed Vital Signs Vital Sign Reading Time Taken Comments Blood Pressure 148/88 11/08/2019 1:[address] [place] Pulse 84 11/08/2019 1:[address] [place] Temperature 36.2 C (97.2 F) 11/08/2019 1:[address] [place] Respiratory Rate 20 11/08/2019 1:[address] [place] Oxygen Saturation - - Inhaled Oxygen Concentration - - Weight 73 kg (161 lb) 11/08/2019 1:[address] [place] Height 167.6 cm (5' 6 ) 11/08/2019 1:[address] [place] Body Mass Index 25.99 11/08/2019 1:[address] [place] Plan of Treatment Upcoming Encounters Date Type Department Care Team (Late st Contact Info) Description 08/22/2025 8:[address] [place] Office Visit [facility] [address] [place] [address] Richardson Eid PA [address] [place] [address] Health Maintenance Due Date Last Done Comments DTAP/TDAP/TD VACCINES (1 - Tdap) 1974 BREAST CANCER SCREENING 1995 FIT-DNA Q 3 years 2000 FIT/FOBT Q 1 year 2000 Flex Sig/CT Colonography Q 5 years 2000 PNEUMOCOCCAL VACCINE 50+ YEA RS (1 of 1 - PCV) 2005 ZOSTER VACCINE (1 of 2) 2005 OSTEOPOROSIS SCREENING 2020 Medicare Advantage ([place]) Prev entative Visit/Annual Wellness Visit 10/04/2024 INFLUENZA VACCINE (#1) 2025 RSV VACCINE (60+ or ) (1 - 1-dose 75+ series) 2030 COLORECTAL SCREENING 11/17/2033 11/17/2023, 11/17/19 24 Colorectal Cancer Screening 11/17/[address] [place] [phone] [facility] DUAL COMPLETE HMO DSNP [facility] [id number]
[2025-08-12 16:13] VITALS: BP 153/114; PULSE 86; RESP 20; O2SAT 97; BMI 25.8
[2025-08-12 16:17] VITALS: TEMP 36.7
--- NOTE | 2025-08-12 16:19 | W.ED.URI ---
HPI - URI/Sore Throat General: Chief Complaint: Upper Respiratory Infection Stated Complaint: cough / rt side pain Time Seen by Provider: 08/12/25 16:10 Source: patient Mode of arrival: ambulatory Limitations: no limitations History of Present Illness: Patient is a 70-year-old female with a history of emphysema and everyday smoking here for complaints of pain in her chest, difficulty breathing, and productive cough. She states symptoms have been present at least 2 weeks . She feels like it started as a sinus infection and now moved into my chest . She has been seen twice through [facility] and initially prescribed what sounds to be doxycycline in addition to steroids. She states she went back after her 10-day course of steroids and was prescribed another 5-day course in addition to more steroids. She still feels like she is not improving. She feels gurgly when she lies down. Chest pain is sharp and intermittent and located to the right side of her chest. No hemoptysis. She has not noted any lower leg swelling or calf pain. She is satting 97% on room air upon arrival. She does not see a biometry teacher for her emphysema. No known sick contacts. Patient states she has never had lung cancer screening CT. MD elicited complaint: cough and other (chest pain) Pertinent past history: other (emphysema, everyday smoking) Onset (ago): week(s) Consistency: constant Severity: moderate Description of mucous: green Able to tolerate fluids by mouth: Yes Exacerbating factors: exertion and other (lying down) Relieving factors: nothing Associated symptoms: Reports chest pain; Deny abdominal pain, chills, diarrhea, fever(s), headache(s), nausea or vomiting Treatments prior to arrival: antibiotics and other (steroids) Related Data Home Medications ?Medication ?Instructions ?Recorded ?Confirmed amlodipine 5 mg tablet 5 mg PO DAILY 08/12/25 08/12/25 trazodone 50 mg tablet 50 mg PO BEDTIME 08/12/25 08/12/25 triamcinolone acetonide 0.1 % 1 applic topical BID 08/12/25 08/12/25 topical cream Previous Rx's ?Medication ?Instructions ?Recorded tizanidine 4 mg tablet 4 mg PO TID PRN muscle spasticity 12/16/23 #270 tabs tgilhcfjdkpprar-ecigrxbrplfzjit-CN 10 ml PO Q6H PRN cold symptoms 08/12/25 2 mg-30 mg-10 mg/5 mL oral syrup #200 mL (Bromfed DM) Allergies Allergy/AdvReac Type Severity Reaction Status Date / Time amoxicillin (From Augmentin) Allergy Intermediate ADR-Nausea Verified 05/16/24 15:17 clavulanic acid (From Allergy Intermediate ADR-Nausea Verified 05/16/24 15:17 Augmentin) morphine Allergy ALGY-Bliste Verified 05/16/24 15:10 r z pack Allergy Intermediate ADR-Nausea Uncoded 05/16/24 15:18 celebrex Allergy Mild leg pain Uncoded 05/16/24 15:10 Review of Systems Const: Denies: fever(s), chills, body aches, fatigue or malaise Card: Reports: chest pain and dyspnea on exertion (chronic with her emphysema); Denies: palpitations, irregular heart rhythm, edema, swelling of feet/ankles, lightheadedness, syncope, pre-syncope, leg pain with exertion or acrocyanosis Resp: Reports: dyspnea, productive cough, change in phlegm color and chest congestion; Denies: wheezing or hemoptysis GI: Denies: abdominal pain, nausea, vomiting or diarrhea : Denies: flank pain or dysuria Musc: Denies: neck pain, back pain, extremity pain, extremity swelling, joint pain, joint swelling or joint redness Skin/Breast: Denies: rash Neuro: Denies: headache(s), numbness in extremities, weakness in extremities, sensory changes or dizziness PFSH ED PFSH: Medical History Major depressive disorder, recurrent, moderate Surgical History Hx of colonoscopy More than 10 years ago History of esophagogastroduodenoscopy (EGD) more than 10 years ago History of hysterectomy Due to abnormal pap Social History Smoking and tobacco/nicotine status: unknown if used tobacco/nicotine Quit status (tobacco/nicotine): not considering quitting Second hand smoke exposure: No Physical Exam Const: COMMON NORMALS: no acute distress, average body habitus, patient oriented x3, no limitations, alert and well nourished GENERAL APPEARANCE: cooperative ORIENTATION/CONSCIOUSNESS: Yes awake, Yes oriented to person, Yes oriented to place and Yes oriented to time HENMT: COMMON NORMALS: normocephalic and atraumatic HEAD & SCALP: normal to inspection, normocephalic and atraumatic FACE & SINUS: normal facial exam and sinus tenderness Neck/C-Spine: COMMON NORMALS: full ROM, no lymphadenopathy, supple, no meningeal signs and no JVD Chest: COMMONS NORMALS: normal inspection of the chest and normal palpation of the breasts BREAST/AXILLA PALPATION: Yes normal palpation of the breasts Resp: COMMON NORMALS: normal respiratory effort and clear to auscultation bilaterally EFFORT & INSPECTION: Yes tachypneic AUSCULTATION: clear to auscultation bilaterally Cardio: COMMON NORMALS: no JVD, regular rate and regular rhythm RATE: regular rate RHYTHM: regular rhythm GI: COMMON NORMALS: Normal to inspection, nondistended, normoactive bowel sounds present, Soft to palpation, non-tender, No hepatosplenomegaly present and no masses PALPATION: Yes Soft to palpation and Yes No hepatosplenomegaly present : COMMON NORMALS: Yes no CVA tenderness BLADDER/KIDNEY EXAM: Yes no CVA tenderness Back/Pelvis: COMMON NORMALS: no CVA tenderness and thoracic and lumbar spine normal to inspection Extremity: COMMON NORMALS: normal to inspection GENERAL: Yes normal exam except as noted Neuro: VINH COMA SCALE: document GCS findings Shelby coma scale eye opening: Spontaneous Vinh coma scale verbal response: Orientated Vinh coma scale motor response: Obey commands Vinh coma scale total score: 15 COMMON NORMALS: patient oriented x3, moves all extremities, no focal motor deficits and no sensory deficits noted SENSORIUM/ORIENTATION: Yes alert, Yes oriented to person, Yes oriented to place and Yes oriented to time MENINGEAL SIGNS: Yes no meningeal signs Skin: COMMON NORMALS: no rashes or lesions noted GENERAL SKIN EXAM: no rashes or lesions noted Course ED course: Wells score for a PE would be 0. Vital Signs: Vital signs: Vital Signs Temperature 98.1 F 08/12/25 16:17 Pulse Rate 76 08/12/25 18:18 Respiratory Rate 20 H 08/12/25 16:13 Blood Pressure 122/81 08/12/25 18:18 Pulse Oximetry 94 08/12/25 18:18 Oxygen Delivery Me thod Room Air 08/12/25 18:18 MDM - URI/Sore Throat Medical Decision Making Patient presents with chest pain, productive cough, dyspnea not improving on antibiotics/steroids. Differential broad including benign and life-threatening etiologies such as ACS, pulmonary emboli, pulmonary effusion, pulmonary mass, bacterial/viral pneumonia, bronchitis, pleurisy, viral URI, among others. DATA: History obtained from patient. Prior records reviewed. Labs ordered/reviewed: CBC showing white count of 12.6, CMP with mild hypokalemia at 3.3, mild elevations for some of her transaminases. BNP mildly elevated at 296. Baseline trop of 14 with a negative delta. Imaging ordered/reviewed: by myself and radiologist-cardiomegaly/emphysema. EKG interpreted: no acute ischemia noted/normal sinus rhythm. Respiratory panel negative. TREATMENT: In the ED, patient did not receive any intervention as she was clinically in no acute distress, satting normally on room air. IMPRESSION: I feel life-threatening etiology has been ruled out. She clinically does not appear fluid overloaded/CHF. Likely viral or post viral syndrome, other consideration would be COPD/emphysema flareup. DISPOSITION: Patient discharged. I do not see any indication for continued steroids/antibiotics. She is requesting something to help with cough/congestion. Prescriptions: Bromphed. Recommend follow-up with PCP this week. Patient advised on strict return precautions and verbalized understanding. Differential Diagnosis Likely upper respiratory infection, viral infection and bronchitis Medical Records I reviewed the patient's medical records. Lab Data I reviewed the patient's lab results. 08/12/25 16:32 08/12/25 16:32 Radiology Impressions Chest X-Ray 08/12/25 16:10 IMPRESSION: 1. Cardiomegaly. 2. Bibasilar atelectasis. 3. Emphysematous changes. Laboratory Results WBC 12.63 10^3/uL (3.29-11.43) H 08/12/25 16:32 RBC 5.08 10^6/uL (3.85-5.65) 08/12/25 16:32 Hgb 16.70 g/dL (11.27-16.99) 08/12/25 16:32 Hct 46.8 % (36-47) 08/12/25 16:32 MCV 92.1 fl (85-98) 08/12/25 16:32 MCH 32.9 pg (27-33) 08/12/25 16:32 MCHC 35.7 g/dL (30-55) 08/12/25 16:32 RDW 12.7 % (12.1-15.1) 08/12/25 16:32 Plt Count 233 10^3/cmm (157-399) 08/12/25 16:32 MPV 9.8 fL (7.4-10.4) 08/12/25 16:32 Neut % (Auto) 55.3 % 08/12/25 16:32 Lymph % (Auto) 34.1 % 08/12/25 16:32 Thurston % (Auto) 8.2 % 08/12/25 16:32 Eos % (Auto) 1.4 % 08/12/25 16:32 Baso % (Auto) 0.6 % 08/12/25 16:32 Neut # (Auto) 6.98 10^3/uL (1.8-7.7) 08/12/25 16:32 Lymph # (Auto) 4.3 10^3/uL (0.8-4.8) 08/12/25 16:32 Thurston # (Auto) 1.0 10^3/uL (0.2-0.9) H 08/12/25 16:32 Eos # (Auto) 0.2 10^3/uL (0.0-0.8) 08/12/25 16:32 Baso # (Auto) 0.1 10^3/uL (0.0-0.1) 08/12/25 16:32 Nucleated RBC % (auto) 0 % 08/12/25 16:32 Nucleated RBCs # 0.0 /100WBC 08/12/25 16:32 Sodium 144 mmol/L (136-145) 08/12/25 16:32 Potassium 3.3 mmol/L (3.5-5.1) L 08/12/25 16:32 Chloride 107 mmol/L (98-107) 08/12/25 16:32 Carbon Dioxide 22 mmol/L (22-29) 08/12/25 16:32 Anion Gap 18.3 (5-19) 08/12/25 16:32 BUN 18 mg/dL (8-23) 08/12/25 16:32 Creatinine 0.9 mg/dL (0.5-0.9) 08/12/25 16:32 GFR Calculation 61.9 mL/min (90-130) L 08/12/25 16:32 Glucose 158 mg/dL (65-115) H 08/12/25 16:32 Calculated Osmolality 303 mOsm/kg (285-295) H 08/12/25 16:32 Calcium 8.4 mg/dL (8.5-10.5) L 08/12/25 16:32 Total Bilirubin 0.3 mg/dL (0.15-1.2) 08/12/25 16:32 AST 31 U/L (0-32) 08/12/25 16:32 ALT 51 U/L (0-33) H 08/12/25 16:32 Alkaline Phosphatase 129 U/L (35-105) H 08/12/25 16:32 Troponin T Baseline 14 ng/L (0-10) H 08/12/25 16:32 Troponin T 120 Minute 12.20 ng/L (0-10) H 08/12/25 18:11 Delta Troponin T -1.80 ABS# (0-10) L 08/12/25 18:11 NT-Pro-B Natriuret Pep 296 pg/mL (0-125) H 08/12/25 16:32 Total Protein 5.9 g/dL (6.6-8.7) L 08/12/25 16:32 Albumin 3.8 g/dL (3.5-5.2) 08/12/25 16:32 Globulin 2.1 g/dL (1.3-4.6) 08/12/25 16:32 Procalcitonin 0.08 ng/mL (0-0.5) 08/12/25 16:32 Adenovirus (PCR) Not detected (NOT DETECT) 08/12/25 16:16 C. pneumoniae DNA (PCR) Not detected (NOT DETECT) 08/12/25 16:16 Coronavirus 229E (PCR) Not detected (NOT DETECT) 08/12/25 16:16 Human Metapneumovir PCR Not detected (NOT DETECT) 08/12/25 16:16 Influenza A (H1) PCR Not detected (NOT DETECT) 08/12/25 16:16 Influ A (H1/09) PCR Not detected (NOT DETECT) 08/12/25 16:16 Influenza A (H3) PCR Not detected (NOT DETECT) 08/12/25 16:16 Influenza Type A (PCR) Not detected (NOT DETECT) 08/12/25 16:16 Influenza Type B (PCR) Not detected (NOT DETECT) 08/12/25 16:16 M. pneumoniae (PCR) Not detected (NOT DETECT) 08/12/25 16:16 Parainfluenza 1 (PCR) Not detected (NOT DETECT) 08/12/25 16:16 Parainfluenza 2 (PCR) Not detected (NOT DETECT) 08/12/25 16:16 Parainfluenza 3 (PCR) Not detected (NOT DETECT) 08/12/25 16:16 Parainfluenza 4 (PCR) Not detected (NOT DETECT) 08/12/25 16:16 RSV Type A (PCR) Not detected (NOT DETECT) 08/12/25 16:16 RSV Type B (PCR) Not detected (NOT DETECT) 08/12/25 16:16 Entero/Rhino (PCR) Not detected (NOT DETECT) 08/12/25 16:16 SARS-CoV-2 (PCR) Not detected (NOT DETECT) 08/12/25 16:16 All radiology interpretation(s) finalized by discharge Discharge Plan Discharge Patient Disposition: Home Clinical Impression: Emphysema, unspecified, Viral upper respiratory tract infection with cough Condition: Stable Prescriptions: New disjjsehvxlyxbf-zwfpasssm-FJ [Bromfed DM] 2-30-10 mg/5 mL syrup 10 ml PO Q6H PRN (Reason: cold symptoms) Qty: 200 0RF No Action tizanidine 4 mg tablet 4 mg PO TID PRN (Reason: muscle spasticity) Qty: 270 1RF trazodone 50 mg tablet 50 mg PO BEDTIME amlodipine 5 mg tablet 5 mg PO DAILY triamcinolone acetonide 0.1 % cream 1 applic TOPICAL BID Discharge Orders: Discharge ED (Routine); Ordered 08/12/25 Ordered By: Yi Wagner Referrals: Qi Winters PA [Primary Care Provider, [employer] Autom[employer] Design Engineer] Patient Instructions: Patient Portal & Julian Instructions Print Language: Pashto Coding Level of Care Code ED Explosive Specialist for [facility] Kevin
--- NOTE | 2025-08-12 16:25 | ECG_ITS ---
[employer] [facility] Test Date: 2025-08-12 Pat Name: Tamara Ferrer Department: Room: Gender: Female Business Services Director: : 1955 Requested By: Yi Wagner Order Number: [id number] Jony MD: Suri Haines M.D. Measurements Intervals [place] Rate: 77 P: 0 WI: 130 QRS: -33 QRSD: 84 T: 30 QT: 368 QTc: 419 Interpretive Statements SINUS RHYTHM LEFT AXIS DEVIATION [QRS AXIS < -30] POSSIBLE ANTERIOR MYOCARDIAL INFARCTION , PROBABLY OLD [30 ms Q WAVE IN V3/V4, OR R < 0.2 mV IN V4] No previous ECG available for comparison Electronically Signed On 08-12-2025 20:10:36 RAIL SIGNAL DESIGNER by Suri Haines M.D. [email or web address]
[2025-08-12 16:43] LABS: Hematocrit 46.8 % (36-47); Hemoglobin 16.70 g/dL (11.27-16.99); Mean Corpuscular HGB Conc 35.7 g/dL (30-55); Mean Corpuscular Hemoglobin 32.9 pg (27-33); Mean Corpuscular Volume 92.1 fl (85-98); Nucleated Red Blood Cells % 0 %; Platelet Count 233 10^3/cmm (157-399); Red Blood Count 5.08 10^6/uL (3.85-5.65); White Blood Count 12.63 10^3/uL (3.29-11.43)
[2025-08-12 17:00] LABS: Troponin(5th) Baseline 14 ng/L (0-10)
[2025-08-12 17:10] LABS: NT Pro B Type Natriuretic Pept 296 pg/mL (0-125); Procalcitonin 0.08 ng/mL (0-0.5)
[2025-08-12 17:21] LABS: Alanine Aminotransferase 51 U/L (0-33); Albumin Level 3.8 g/dL (3.5-5.2); Alkaline Phosphatase 129 U/L (35-105); Anion Gap 18.3 (5-19); Aspartate Amino Transferase 31 U/L (0-32); Blood Urea Nitrogen 18 mg/dL (8-23); Calcium 8.4 mg/dL (8.5-10.5); Carbon Dioxide 22 mmol/L (22-29); Chloride 107 mmol/L (98-107); Creatinine Clr Calc Pharmacy 59.3255; Globulin 2.1 g/dL (1.3-4.6); Glucose 158 mg/dL (65-115); Osmolality Calculated 303 mOsm/kg (285-295); Potassium 3.3 mmol/L (3.5-5.1); Sodium 144 mmol/L (136-145); Total Protein 5.9 g/dL (6.6-8.7)
[2025-08-12 17:32] VITALS: BP 120/84; PULSE 76; O2SAT 95
[2025-08-12 18:12] LABS: Coronavirus 229E,HKU1,NL63,OC4 Not Detected (NOT DETECT); Parainfluenza Virus Type 1 Not Detected (NOT DETECT); Parainfluenza Virus Type 2 Not Detected (NOT DETECT); Parainfluenza Virus Type 3 Not Detected (NOT DETECT); Parainfluenza Virus Type 4 Not Detected (NOT DETECT); SARS-COV-2 Not Detected (NOT DETECT)
--- NOTE | 2025-08-12 18:17 | ECG_ITS ---
[facility]25-08[facility]12 Pat Name: Tamara Ferrer Department: Room: Gender: Female Lobby Concierge: : 1955 Requested By: Yi Wagner Order Number: [id number] Jony MD: Suri Haines M.D. Measurements Intervals [place]ong Rate: 74 P: -3 NJ: 135 QRS: -39 QRSD: 89 T: 30 QT: 382 QTc: 426 Interpretive Statements SINUS RHYTHM LEFT AXIS DEVIATION [QRS AXIS < -30] PATTERN CONSISTENT WITH PULMONARY DISEASE MINIMAL ST DEPRESSION [0.025+ mV ST DEPRESSION] Compared to ECG 08/12/2025 16:25:24 ST (T wave) deviation now present Myocardial infarct finding no longer present Electronically Signed On 08-12-2025 20:16:31 AIRCRAFT TECHNICIAN by Suri Haines M.D. [id number]
[2025-08-12 18:18] VITALS: BP 122/81; PULSE 76; O2SAT 94
[2025-08-12 18:36] LABS: Troponin 5 2HR 12.20 ng/L (0-10); Troponin 5 2HR Delta -1.80 ABS# (0-10)
[2025-08-12 19:01] VITALS: BP 128/81; PULSE 73; O2SAT 95
== END 2025-08-12 19:02 | disposition home or self-care (01) ==
PROVIDERS: Emergency Provider Physician Assistant; PCP Physician Assistant
DX: J43.9 Emphysema, unspecified (principal); J06.9 Acute upper respiratory infection, unspecified; R05.9 Cough, unspecified; Z11.52 Encounter for screening for COVID-19
CPT/HCPCS: 36415; 71045; 80053; 83880; 84145; 84484; 85025; 87486; 87581; 87633; 93005; 99285